=== PATIENT | female | born 1945 | race Caucasian/White ===

== ENCOUNTER 2020-01-06 17:22 | Emergency (ER) | payer MEDICARE ==
[~2020-01-06] VITALS: Ht 165.1 cm; Wt 85.0 kg
[~2020-01-06 17:22] MED LIST: ACET325T14 PO; AMIO200T42 PO; ASCO100019 PO; ASPI-191 PO; ASPI81TA45 PO; CALC1TAB PO; CARV3.122 PO; CLOP75TA PO; CLOP75TA52 PO; FURO20TA3 PO; FURO40TA6 PO; LEVO25TA2 PO; LEVO25TA4 PO; LISI2.5T PO; MAGN400T26 PO; POTA20TA6 PO; ROSU20TA2 PO; SPIR25TA5 PO; VANC1VIA3 PO
[2020-01-06] MEDS ORDERED: ACETAMINOPHEN 500 MG TABLET ONE (18:27)
[2020-01-06] MEDS ORDERED: ACETAMINOPHEN 500 MG TABLET PO ONE (18:30)
[2020-01-06 19:24] VITALS: BP 111/85
== END 2020-01-06 20:04 | disposition home or self-care (01) ==
LOC: ED 19:18
DX: S46.811A Strain of other muscles, fascia and tendons at shoulder and upper arm level, right arm, initial encounter (principal); I10 Essential (primary) hypertension; E78.00 Pure hypercholesterolemia, unspecified; Z86.73 Personal history of transient ischemic attack (TIA), and cerebral infarction without residual deficits; W01.0XXA Fall on same level from slipping, tripping and stumbling without subsequent striking against object, initial encounter; Y93.89 Activity, other specified; Y92.009 Unspecified place in unspecified non-institutional (private) residence as the place of occurrence of the external cause; Y99.8 Other external cause status
CPT/HCPCS: 93005; 99283

== ENCOUNTER → 2020-01-10 | Outpatient (CLI) | payer MEDICARE | END | disposition home or self-care (01) | LOC: CVU 09:45 | PROVIDERS: ATTEND Internal Medicine Cardiovascular Disease | DX: Z01.810 Encounter for preprocedural cardiovascular examination (principal); I08.0 Rheumatic disorders of both mitral and aortic valves; I11.9 Hypertensive heart disease without heart failure; I65.23 Occlusion and stenosis of bilateral carotid arteries; K57.30 Diverticulosis of large intestine without perforation or abscess without bleeding; N20.0 Calculus of kidney; N28.1 Cyst of kidney, acquired; I70.8 Atherosclerosis of other arteries; R16.1 Splenomegaly, not elsewhere classified; I74.5 Embolism and thrombosis of iliac artery; I71.4 Abdominal aortic aneurysm, without rupture; I70.201 Unspecified atherosclerosis of native arteries of extremities, right leg; Q25.46 Tortuous aortic arch; Z90.49 Acquired absence of other specified parts of digestive tract | CPT/HCPCS: 71250; 74176; 93306; 93356; 93880; 93978 ==